=== PATIENT | male | born 1995 | race Two or more races ===

== ENCOUNTER 2023-12-07 09:51 | Emergency (ER) | payer OTHER ==
[~2023-12-07] VITALS: Ht 154.9 cm; Wt 76.2 kg
[2023-12-07] MEDS ORDERED: ACETAMINOPHEN 325 MG TABLET PO ONE ×2 (10:45)
== END 2023-12-07 12:50 | disposition home or self-care (01) ==
LOC: ER 09:52
DX: R51.9 Headache, unspecified (principal); M79.642 Pain in left hand; M79.641 Pain in right hand; M54.9 Dorsalgia, unspecified; Y33.XXXA Other specified events, undetermined intent, initial encounter; Y93.9 Activity, unspecified; Y92.9 Unspecified place or not applicable; Y99.9 Unspecified external cause status